=== PATIENT | female | born 1960 ===

== ENCOUNTER → 2023-03-05 | Outpatient (CLI) | payer OTHER | LOC: LAB 18:39 → LAB SHORT 18:39 | DX: N39.0 Urinary tract infection, site not specified (principal) | CPT/HCPCS: 87077; 87086; 87186 ==

== ENCOUNTER → 2023-04-02 | Outpatient (CLI) | payer OTHER | END | disposition home or self-care (01) | LOC: LAB SHORT 12:28 → LAB 12:28 | DX: R30.0 Dysuria (principal) | CPT/HCPCS: 87086 ==